=== PATIENT | male | born 1950 | race Caucasian/White ===

== ENCOUNTER 2022-09-22 09:42 | Emergency (ER) | payer MEDICARE, OTHER ==
[2022-09-22] MEDS ORDERED: TETANUS/DIPHTHERIA TOX ADULT 0.5 ML SYR IM ONE (10:30)
== END 2022-09-22 11:55 | disposition home or self-care (01) ==
LOC: ER 09:47
DX: S00.83XA Contusion of other part of head, initial encounter (principal); S40.212A Abrasion of left shoulder, initial encounter; W01.0XXA Fall on same level from slipping, tripping and stumbling without subsequent striking against object, initial encounter; Y93.01 Activity, walking, marching and hiking; Y92.89 Other specified places as the place of occurrence of the external cause; R94.02 Abnormal brain scan; Z79.01 Long term (current) use of anticoagulants
CPT/HCPCS: 70450; 90714; 99283